=== PATIENT | female | born 1950 | race Caucasian/White ===

== ENCOUNTER → 2018-04-19 | Outpatient (CLI) | payer MEDICARE ==
--- NOTE | 2018-04-19 14:03 | RADRPT ---
EXAM DATE: 04/19/2018 1:51 PM EDT AGE/SEX: 67 years / Female INDICATIONS: asthma, copd CLINICAL DATA: This is the patient's initial encounter. Patient reports that signs and symptoms have been present for 1 day and indicates a pain score of 0/10. MEDICAL/SURGICAL HISTORY: Chronic obstructive pulmonary disease. . RADIATION DOSE: 4.36 CTDI (mGy) COMPARISON: No prior exams available for comparison. TECHNIQUE: Multiple contiguous axial images were obtained through the chest without contrast. Image s were obtained in suspended respiration using multiple row detector helical technique. Using automa kyle exposure control and adjustment of the mA and/or kV according to patient size, radiation dose was kept as low as reasonably achievable to obtain optimal diagnostic quality images. DICOM format imag e data is available electronically for review and comparison. FINDINGS: Imaging through the pulmonary parenchyma demonstrates mild biapical pleural thickening. There are [employer]UDENT COUNSELLOR D changes with mild tubular bronchiectasis and scattered areas of mild end airway disease bilaterally . No suspicious mass lesions are identified. The heart is normal in size. There is atherosclerotic plaquing in the coronary arteries. There is mil d aneurysmal enlargement of the tubular portion of the ascending aorta at 3.8 cm. The descending thor acic aorta returns to a normal caliber and measures approximately 2.6 cm throughout its course. No si gnificant hilar or mediastinal adenopathy is seen. No abnormal axillary adenopathy is present. The osseous structures demonstrate degenerative changes but are otherwise intact. The limited portions of upper abdomen visualized demonstrate a 2.3 cm cyst within the right kidney CONCLUSION: 1. Moderate COPD changes with mild tubular bronchiectasis and mild end airway disease 2. 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 3. No suspicious mass lesions identified. Electronically signed by: Daniel De La Cruz MD 04/19/2018 2:02 PM EDT
== END ==
LOC: HRSP 12:09
PROVIDERS: ATTEND Internal Medicine Pulmonary Disease
DX: J44.9 Chronic obstructive pulmonary disease, unspecified (principal)
CPT/HCPCS: 71250; 94060; 94726; 94729